=== PATIENT | male | born 1940 | race Caucasian/White ===

== ENCOUNTER 2020-06-04 10:44 | Day surgery (SDC) | payer OTHER ==
[~2020-06-04] VITALS: Ht 177.8 cm; Wt 86.5 kg
[~2020-06-04 10:44] MED LIST: ALBU90OI INH; AMLO5 PO; ATEN50 PO; AZELASTINE137 MCG/0.; Aspirin EC81 MG PO; BUPR100ER PO; BUPR75; CEPH500 PO; CLON.5 PO; DOXA4 PO; FLUT.05NI; FURO40 PO; HYDACE5 PO; LEVO750 PO; LORA.5 PO; MECL25 PO; MELO7.5 PO; OMEP20ER; OMEP20ER PO; POTA10T PO; PRODEXEL PO; Prednisone20 MG PO; TAMS.4ER PO; TRAZ100 PO; TRAZ50; VITAMIN B125000 MC1 PO; VITAMIN D310 MC4 PO; ZYRTEC10 M2 PO; Zithromax250 MG PO
--- NOTE | 2020-06-04 11:28 | NUR ---
Ambulatory in Day Surgery. Surgical site prepped with 2% Chlorhexidine cloth wipe. History, Chart, Medications and Allergies reviewed before start of procedure.Lungs clear T/O to Auscultation. Patient confirms NPO status and agrees with scheduled surgery. Pre-Op teaching done. Pt verbalizes understanding. Patient States Post-Procedure ride home has been arranged. Patient reports completing Chlorhexadine shower X2 prior to admission to hospital.
--- NOTE | 2020-06-04 11:55 | NUR ---
History, Chart, Medications and Allergies reviewed before start of procedure.Patient confirms NPO status and agrees with scheduled surgery. Patient reports completing Chlorhexadine shower X5 WITH MUCIPORION OINTMENT TO NOSE X5 prior to admission to hospital.Surgical site prepped with 2% Chlorhexidine cloth wipe.
--- NOTE | 2020-06-04 18:53 | NUR ---
SHIFT SUMMARY PT A&OX4, VSS, S/P L TKA, AQUACEL\ANITHA WRAP CDI, TEDS/SCDS/POLAR RANDA ON. DENIES N&T, WIGGLES TOES/MOVES FEET. DENIES PAIN. DENIES N&V, SERA PO. VOIDING WELL/URINAL. WILL REPORT TO ONCOMING NOC RN.
[2020-06-05 05:23] LABS: BASOPHILS ABSOLUTE AUTO 0.01 K/mm3 (0.00-0.23); BASOPHILS PERCENT AUTO 0 % (0-2); EOSINOPHILS ABSOLUTE AUTO 0.02 K/mm3 (0.00-0.68); EOSINOPHILS PERCENT AUTO 0 % (0-6); Hematocrit 37.1 % (37.0-53.0); Hemoglobin 11.6 g/dL (13.5-17.5); IMMATURE GRAN ABSOLUTE AUTO 0.05 K/mm3 (0.00-0.10); IMMATURE GRAN PERCENT AUTO 1 % (0-1); LYMPHOCYTES ABSOLUTE AUTO 0.75 K/mm3 (0.84-5.20); LYMPHOCYTES PERCENT AUTO 9 % (21-46); MONOCYTES ABSOLUTE AUTO 0.62 K/mm3 (0.16-1.47); MONOCYTES PERCENT AUTO 7 % (4-13); Mean Corpuscular HGB 28.2 pg (26.0-34.0); Mean Corpuscular HGB Conc 31.3 g/dL (31.5-36.5); Mean Corpuscular Volume 90 fL (80-100); Mean Platelet Volume 9.4 fL (9.1-12.4); NEUTROPHILS ABSOLUTE AUTO 7.36 K/mm3 (1.96-9.15); NEUTROPHILS PERCENT AUTO 84 % (41-73); Platelet Count 156 K/mm3 (150-400); RDW Coefficient Variation 14.7 % (11.7-14.2); RDW Standard Deviation 48.6 fL (35.1-46.3); Red Blood Cell Count 4.11 M/mm3 (4.30-5.90); White Blood Cell Count 8.81 K/mm3 (4.00-11.30)
[2020-06-05 05:38] LABS: Bun/Creatinine Ratio 19.1 (12.0-20.0); Creatinine, Blood 1.36 mg/dL (0.60-1.20); Potassium, Blood 4.4 mmol/L (3.5-5.5)
--- NOTE | 2020-06-05 07:26 | NUR ---
SHIFT SUMMARY POD#1. AAOX4. DISCOMFORT CONTROLLED WITH SCHEDULED TORADOL/TYLENOL + 5MG ROXICODONE Q4H. NO NAUSEA/EMESIS. DRESSING TO LEFT KNEE C/D/I. PT UP TO BATHROOM + OUT IN HALLS TO AMBULATE SBA WITH FWW + GAIT BELT X2 THIS NOC SHIFT. UP TO CHAIR THIS AM AWAITING BREAKFAST WITH CALL LIGHT IN REACH. REPORT TO DAY SHIFT RN.
[2020-06-05] MEDS ORDERED: ASPI81CH PO (10:56)
[2020-06-05] MEDS ORDERED: Percocet 5-3251 EACH PO (10:56)
--- NOTE | 2020-06-05 14:58 | NUR ---
DISCHARGE DELAY PT HAD ELEVATED PAIN AFTER AM THERAPY. PT REQUIRED A SECOND PAIN PILL. PAIN CONTINUED TO INCREASED TO 8 UNTIL 1330. HE WAS GIVEN 2 OXYCODONE AT APPROXIMATELY 1330 ALLOWED BY ORDER. PAIN IS NOW 4/10. PT ALSO NEEDED PRESCRIPTION FOR A WALKER. DR. VILLAFANA' OFFICE WAS CONTACTED REGARDING PRESCRIPTION FOR WALKER, THEY REPORTED IT HAD BEEN FAXED TO THE CT. THE OFFICE OF COMMUNITY CARE AT THE CT DENIED RECEIVING THE PRESCRIPTION. JONO AT DR. VILLAFANA' OFFICE WAS ASKED TO RE-FAX THE PRESCRIPTION. THE CT WAS ABLE TO ARRANGE FOR PT'S BEHAVIORAL ASSISTANT ANA LILIA TO BOATBUILDER SUPERVISOR HIS WALKER SINCE HE HAD PHYSICAL THERAPY AND WAS TRAINED TO USE THE WALKER PRIOR TO DISCHARGE.
--- NOTE | 2020-06-05 15:08 | NUR ---
DISCHARGE PT AND PHYSICAL SCIENCES PROFESSOR (ANA LILIA), PROVIDED WITH WRITTEN AND VERBAL DISCHARGE INSTRUCTIONS; THEY REPORTED UNDERSTANDING INSTRUCTIONS. SCRIPTS PROVIDED FOR PAIN MANAGMENT. DRESSINGS PROVIDED. VERIFIED WITH ANA LILIA THAT SHE WAS ABLE TO OBTAIN WALKER FOR THE PT. VSS. DENZEL PULLIAM ASSISTING PT OUT IN W/C AT 1513.
== END 2020-06-05 15:13 | disposition home or self-care (01) ==
LOC: ORSCMMR 10:44 → SURS 16:04 → ORSCMMR 16:15 → SURS 06-05 15:13 → ORSCMMR 06-05 15:13
PROVIDERS: Orthopaedic Surgery
PROC: 8E0Y0CZ Robotic Assisted Procedure of Lower Extremity, Open Approach (ICD-10-PCS; principal; 2020-06-04 12:45)
PROC: 0SRD0JA Replacement of Left Knee Joint with Synthetic Substitute, Uncemented, Open Approach (ICD-10-PCS; principal; 2020-06-04 12:45)
DX: M17.12 Unilateral primary osteoarthritis, left knee (principal); I10 Essential (primary) hypertension; I50.9 Heart failure, unspecified; Z79.899 Other long term (current) drug therapy
CPT/HCPCS: 27447; S2900; 36415; 73560-LT; 80048; 85025; 88300; 97110; 97116; 97162; A9270; A9270-GY; C1776; J0171; J0690; J0735; J1100; J1885; J2250; J2370; J2405; J2704; J2795; J3010; J7120

== ENCOUNTER 2020-08-16 09:16 | Day surgery (SDC) | payer OTHER, MEDICARE ==
[~2020-08-16] VITALS: Ht 162.6 cm; Wt 89.3 kg
[~2020-08-16 09:16] MED LIST changes: +ARTIFICIAL TEA1 EAC1 BOTHEYES; +ASPI81CH PO; +Flonase 0.05% N16 GM; +Percocet 5-3251 EACH PO
== END 2020-08-16 11:09 | disposition home or self-care (01) ==
LOC: ORSCSDS 09:16
PROVIDERS: Internal Medicine Gastroenterology
PROC: 0DB58ZX Excision of Esophagus, Via Natural or Artificial Opening Endoscopic, Diagnostic (ICD-10-PCS; principal; 2020-08-16 10:30)
PROC: 0DB68ZX Excision of Stomach, Via Natural or Artificial Opening Endoscopic, Diagnostic (ICD-10-PCS; principal; 2020-08-16 10:30)
DX: K92.1 Melena (principal); K22.70 Barrett's esophagus without dysplasia; Z87.11 Personal history of peptic ulcer disease; Z87.891 Personal history of nicotine dependence; K22.2 Esophageal obstruction; Z79.899 Other long term (current) drug therapy
CPT/HCPCS: 88305; 88342; J2704; J7120

== ENCOUNTER 2021-05-15 10:11 | Day surgery (SDC) | payer OTHER, MEDICARE ==
[~2021-05-15] VITALS: Ht 162.6 cm; Wt 88.0 kg
[2021-05-15] MEDS ORDERED: COMBIVENT RESPIM4 G1 INH (10:41)
--- NOTE | 2021-05-15 13:25 | NUR ---
PT TO RECOVERY ROOM WITH THREE ACCESS SITES. RRAD ACCESS WITH TR BAND IN PLACE WITH 10mL AIR IN BAND. BNO BLEEDING, OOZING OR HEMATOMA NOTED. R FEMORAL SITE WITH TEGADERM DRESSING APPLIED. WAS NOT ABLE TO ACCESS ARTERY THROUGH THE R FEM. L FEMORAL ARTERY SITE WITH SUCCESSFUL ANGIOSEAL IN PLACE. NO BLEEDING, OOZING OR HEMATOMA. PT DENIES ANY CP. PT LAYING FLAT IN BED AND PROVIDED WATER VIA STRAW. PT DENIES ANY CONCERNS AT THIS TIME. WILL CONTINUE TO MONITOR. VSS.
--- NOTE | 2021-05-15 14:31 | NUR ---
3mL AIR RELEASED FROM TR BAND. NO BLEEDING, OOZING OR HEMATOMA NOTED. BOTH FEMORAL SITES ARE STABLE WITH NO CHANGES. THERE IS NO BLEEDING, OOZING OR HEMATOMA NOTED. VSS. WILL CONTINUE TO MONITOR.
--- NOTE | 2021-05-15 14:53 | NUR ---
ALL AIR RELEASED FROM TR BAND. NO BLEEDING, OOZING OR HEMATOMA NOTED. BOTH GROIN SITES ARE STABLE WITH NO BLEEDING, OOZING OR HEMATOMA NOTED. PTS HEAD ELEVATED TO ABOUT 45 DEGREES. DENIES ANY PAIN OR DISCOMFORT OR ANY FURTHER NEEDS. WILL CONTINUE TO MONITOR. VSS.
--- NOTE | 2021-05-15 17:04 | NUR ---
DISCHARGE PT AMBULATED TO RESTROOM AND DRESSED SELF WITH NO COMPLICATIONS. TR BAND REMOVED. SITE CLEANED, CLOTH DOT DRESSING APPLIED. WHITE BOARD PLACED ON PTS R HAND. BOTH PTS GROIN SITES WITH NO BLEEDING, OOZING OR HEMATOMA NOTED. PT STATES HIS UNDERSTANDING OF SITE CARE AND DC INSTRUCTIONS AND DENIES ANY QUESTIONS OR CONCERNS. IV DC'D WITH CATH INTACT. PTS R ARM PLACED IN A SLING UPON DC. PT TAKEN TO EXIT VIA WHEELCHAIR WHERE FRIEND WAS WAITING WITH VEHICLE.
== END 2021-05-15 22:59 | disposition home or self-care (01) ==
LOC: MHTC 10:11
PROC: 4A023N7 Measurement of Cardiac Sampling and Pressure, Left Heart, Percutaneous Approach (ICD-10-PCS; principal; 2021-05-15)
PROC: B2111ZZ Fluoroscopy of Multiple Coronary Arteries using Low Osmolar Contrast (ICD-10-PCS; principal; 2021-05-15)
DX: I35.0 Nonrheumatic aortic (valve) stenosis (principal); I25.10 Atherosclerotic heart disease of native coronary artery without angina pectoris; Z88.0 Allergy status to penicillin
CPT/HCPCS: 76937; 93454; 99152; 99153; C1760; C1769; C1887; C1894; J2250; J3010; J7030; Q9967

== ENCOUNTER 2021-06-14 17:37 | Emergency (ER) | payer OTHER ==
[~2021-06-14] VITALS: Ht 172.7 cm; Wt 83.9 kg
[~2021-06-14 17:37] MED LIST changes: +COMBIVENT RESPIM4 G1 INH
[2021-06-14 18:15] LABS: BASOPHILS ABSOLUTE AUTO 0.04 K/mm3 (0.00-0.23); BASOPHILS PERCENT AUTO 1 % (0-2); EOSINOPHILS ABSOLUTE AUTO 0.21 K/mm3 (0.00-0.68); EOSINOPHILS PERCENT AUTO 4 % (0-6); Hematocrit 35.4 % (37.0-53.0); Hemoglobin 11.5 g/dL (13.5-17.5); IMMATURE GRAN ABSOLUTE AUTO 0.04 K/mm3 (0.00-0.10); IMMATURE GRAN PERCENT AUTO 1 % (0-1); LYMPHOCYTES ABSOLUTE AUTO 0.67 K/mm3 (0.84-5.20); LYMPHOCYTES PERCENT AUTO 14 % (21-46); MONOCYTES ABSOLUTE AUTO 0.42 K/mm3 (0.16-1.47); MONOCYTES PERCENT AUTO 9 % (4-13); Mean Corpuscular HGB 29.9 pg (26.0-34.0); Mean Corpuscular HGB Conc 32.5 g/dL (31.5-36.5); Mean Corpuscular Volume 92 fL (80-100); Mean Platelet Volume 9.7 fL (9.1-12.4); NEUTROPHILS ABSOLUTE AUTO 3.49 K/mm3 (1.96-9.15); NEUTROPHILS PERCENT AUTO 72 % (41-73); Platelet Count 125 K/mm3 (150-400); RDW Standard Deviation 50.3 fL (35.1-46.3); Red Blood Cell Count 3.85 M/mm3 (4.30-5.90); White Blood Cell Count 4.87 K/mm3 (4.00-11.30)
[2021-06-14 18:33] LABS: Alanine Aminotransfer (ALT/SGP 13 U/L (12-78); Albumin, Blood 2.5 g/dL (3.4-5.0); Alk Phos 83 U/L (50-136); Anion Gap 5 mmol/L (6-16); Aspartate Aminotrans (AST/SGOT 16 U/L (12-37); Bilirubin, Total 0.7 mg/dL (0.1-1.0); Blood Urea Nitrogen 19 mg/dL (8-24); Bun/Creatinine Ratio 17.8 (12.0-20.0); CO2, Blood 23 mmol/L (21-32); Calcium, Blood 6.7 mg/dL (8.5-10.1); Chloride, Blood 118 mmol/L (98-108); Creatinine, Blood 1.07 mg/dL (0.60-1.20); Globulin, Blood 2.5 g/dL (2.2-4.0); Glomerular Filtration Rate >60 (60-); Glucose, Blood 80 mg/dL (70-99); Potassium, Blood 3.2 mmol/L (3.5-5.5); Sodium, Blood 146 mmol/L (136-145); Troponin I <0.015 ng/mL (0.000-0.040)
== END 2021-06-14 20:57 | disposition home or self-care (01) ==
LOC: ER 17:37
PROVIDERS: Emergency Medicine
DX: R07.9 Chest pain, unspecified (principal); R00.2 Palpitations; Z88.0 Allergy status to penicillin; Z79.899 Other long term (current) drug therapy; I10 Essential (primary) hypertension; Z87.891 Personal history of nicotine dependence
CPT/HCPCS: 71045; 80053; 84484; 85025; 93005; 93010; 99285-25

== ENCOUNTER 2021-09-05 15:20 | Inpatient (IN) | payer OTHER ==
[~2021-09-05] VITALS: Ht 167.6 cm; Wt 79.4 kg
[2021-09-05 20:21] LABS: BASOPHILS ABSOLUTE AUTO 0.03 K/mm3 (0.00-0.23); BASOPHILS PERCENT AUTO 0 % (0-2); EOSINOPHILS ABSOLUTE AUTO 0.08 K/mm3 (0.00-0.68); EOSINOPHILS PERCENT AUTO 1 % (0-6); Hematocrit 30.4 % (37.0-53.0); Hemoglobin 9.9 g/dL (13.5-17.5); IMMATURE GRAN ABSOLUTE AUTO 0.25 K/mm3 (0.00-0.10); IMMATURE GRAN PERCENT AUTO 4 % (0-1); LYMPHOCYTES ABSOLUTE AUTO 0.72 K/mm3 (0.84-5.20); LYMPHOCYTES PERCENT AUTO 10 % (21-46); MONOCYTES ABSOLUTE AUTO 0.79 K/mm3 (0.16-1.47); MONOCYTES PERCENT AUTO 11 % (4-13); Mean Corpuscular HGB 28.6 pg (26.0-34.0); Mean Corpuscular HGB Conc 32.6 g/dL (31.5-36.5); Mean Corpuscular Volume 88 fL (80-100); Mean Platelet Volume 9.1 fL (9.1-12.4); NEUTROPHILS ABSOLUTE AUTO 5.31 K/mm3 (1.96-9.15); NEUTROPHILS PERCENT AUTO 74 % (41-73); Platelet Count 236 K/mm3 (150-400); RDW Coefficient Variation 15.1 % (11.7-14.2); RDW Standard Deviation 48.2 fL (35.1-46.3); Red Blood Cell Count 3.46 M/mm3 (4.30-5.90); White Blood Cell Count 7.18 K/mm3 (4.00-11.30)
[2021-09-05 20:33] LABS: Bun/Creatinine Ratio 15.7 (12.0-20.0); Calcium, Blood 8.3 mg/dL (8.5-10.1); Creatinine, Blood 1.53 mg/dL (0.60-1.20); Potassium, Blood 3.6 mmol/L (3.5-5.5)
[2021-09-06 01:40] LABS: Source, Urine Clean Catch
[2021-09-06 01:43] LABS: Bilirubin, Urine Neg (Neg); Blood, Urine Neg (Neg); Glucose Qualitative, Urine Neg (Neg); Ketones, Urine Neg (Neg); Leukocyte Esterase, Urine Neg (Neg); Nitrite, Urine Neg (Neg); Protein, Urine Neg (Neg); Urobilinogen, Urine 2+ (Normal)
[2021-09-06 01:44] LABS: Appearance, Urine Clear (Clear); Color, Urine Yellow (P-Yellow)
--- NOTE | 2021-09-06 04:31 | NUR ---
SHIFT SUMMARY RECIEVED REPORT FROM SAUL TILLEY. ARRIVED VIA GURNEY TO MEDICAL FLOOR @ 0039; TRANSFER ASSISTANCE REQUIRED. ORIENTED TO ROOM AND CALL SYSTEM. A/O, ABLE TO MAKE NEEDS KNOWN. VERY [place] /c BILATERAL HEARING AIDS PRESENT. PAINFUL /c ANY MOVEMENT. CONTINENT /c ATTENDS. CALLS AND ANSWERS QUESTIONS APPROPIRATELY. NS @ 75 ML/HR. VSS/AFEBRILE. NO OTHER ACUTE CHANGES NOTED. BED WHEELS LOCKED AND IN PLACE. CALL LIGHT AND BELONGINGS WITHIN REACH. REPORT TO ONCOMING SAUL.
[2021-09-06 04:47] LABS: BASOPHILS ABSOLUTE AUTO 0.03 K/mm3 (0.00-0.23); BASOPHILS PERCENT AUTO 0 % (0-2); EOSINOPHILS ABSOLUTE AUTO 0.11 K/mm3 (0.00-0.68); EOSINOPHILS PERCENT AUTO 2 % (0-6); Hematocrit 31.1 % (37.0-53.0); Hemoglobin 9.8 g/dL (13.5-17.5); IMMATURE GRAN ABSOLUTE AUTO 0.19 K/mm3 (0.00-0.10); IMMATURE GRAN PERCENT AUTO 3 % (0-1); LYMPHOCYTES ABSOLUTE AUTO 0.66 K/mm3 (0.84-5.20); LYMPHOCYTES PERCENT AUTO 9 % (21-46); MONOCYTES ABSOLUTE AUTO 0.66 K/mm3 (0.16-1.47); MONOCYTES PERCENT AUTO 9 % (4-13); Mean Corpuscular HGB 27.8 pg (26.0-34.0); Mean Corpuscular HGB Conc 31.5 g/dL (31.5-36.5); Mean Corpuscular Volume 88 fL (80-100); Mean Platelet Volume 9.4 fL (9.1-12.4); NEUTROPHILS ABSOLUTE AUTO 5.88 K/mm3 (1.96-9.15); NEUTROPHILS PERCENT AUTO 78 % (41-73); Platelet Count 227 K/mm3 (150-400); RDW Coefficient Variation 15.3 % (11.7-14.2); RDW Standard Deviation 49.2 fL (35.1-46.3); Red Blood Cell Count 3.53 M/mm3 (4.30-5.90); White Blood Cell Count 7.53 K/mm3 (4.00-11.30)
[2021-09-06 05:21] LABS: Albumin, Blood 2.7 g/dL (3.4-5.0); Bun/Creatinine Ratio 18.4 (12.0-20.0); Calcium, Blood 8.1 mg/dL (8.5-10.1); Creatinine, Blood 1.36 mg/dL (0.60-1.20); Globulin, Blood 2.8 g/dL (2.2-4.0); Potassium, Blood 3.7 mmol/L (3.5-5.5); Total Protein, Blood 5.5 g/dL (6.4-8.2)
--- NOTE | 2021-09-06 18:22 | NUR ---
SHIFT SUMMARY PT AWAKE AT START OF SHIFT, LYING FLAT, BUT WITH PILLOWS TO R BACK FOR SUPPORT. PT MEDICATED FOR C/O PAIN EARLY AND AGAIN LATER MORNING. PT C/O C/P, BUT REPORTED THAT IT HAS BEEN GOING ON FOR 2 1/2 YEARS. PT REPORTED THAT HE WAS TO HAVE A PROCEDURE IN [place] THIS WEDNESDAY, BUT EQUIPMENT BROKE DOWN. ECHO DONE IN SOON AFTER. NO FURTHER C/O. DR AGUIRRE IN TO SEE PT A COUPLE OF TIMES TODAY. PAIN MEDICATION ADJUSTED AND BCX'S ORDERED. DIET CHANGED PER PT REQUEST HE STATED HE COULDN'T CHEW REG DIET. IVF'S X1 BAG COMPLETE. PT IS SL. CALL LT IN REACH.
--- NOTE | 2021-09-06 18:37 | NUR ---
[facility] CALLED TO CHECK STATUS OF PT FOR BACK BRACE PLACEMENT. PT MUST BE ABLE TO SIT UPRIGHT FOR PLACEMENT. BRACE IS NOT FOR LYING IN BED, BUT FOR WHEN PT IS AMBULATORY. PT CURRENTLY IS NOT ABLE TO SIT UPRIGHT OR GET OOB. [facility] TO BE NOTIFIED WHEN WE WANT THEM TO COME AND PLACE BACK BRACE FOR D/C. NOTIFY [facility] ANS @ [phone].
--- NOTE | 2021-09-07 05:01 | NUR ---
SHIFT SUMMARY A/O, ABLE TO MAKE NEEDS KNOWN. COOPERATIVE WITH CARE. CALLS AND ANSWERS QUESTIONS APPROPRIATELY. VERY [place]; COMMUNICATION MOSTLY EASY. C/O PAIN/DISCOMFORT TO NECK; MEDICATED PER EMAR. APPEARED TO REST MUCH OF THE NIGHT. NO ACUTE CHANGES NOTED. BED REMAINS IN LOWEST POSTION. CALL LIGHT AND BELONGINGS WITHIN REACH. REPORT TO ONCOMING RN.
--- NOTE | 2021-09-07 17:03 | NUR ---
SHIFT SUMMARY PT IS A&O AND APPEARS TO HAVE LESS BACK PAIN TODAY. PT IS MUCH MORE MOBILE TODAY THAN YESTERDAY, THOUGH STILL NOT COMPLETELY UPRIGHT. PT WAS TO HAVE A CT GUIDED BIOPSY TODAY, BUT RADIOLOGY CALLED TO REPORT THAT NO ONE WAS AVAILABLE ON WEDNESDAY; TO BE RESCHEDULED FOR TOMORROW. LAB CALLED TO REPORT +BCX'S; DR AGUIRRE NOTIFIED AND NEW ORDERS PLACED. IV ABX STARTED. PT TO HAVE PICC PLACED TOMORROW FOR 6 WEEKS OUTPT ABX AT D/C. PT HAS BEEN MEDICATED PER EMAR WITH FLEXERIL AND PAIN MEDICATION. FLEXERIL APPEARS TO BE HELPING PT TO BE MORE MOBILE IN BED. PT REMAINS VERY NEEDY, PRESSING CALL LT EVERY COUPLE OF MINS. PT HAS ALSO BEEN VERY IRRITABLE THE PAST COUPLE OF DAYS AT LEAST. PT IN NO ACUTE DISTRESS, ABLE TO MAKE NEEDS KNOWN.
[2021-09-08 04:37] LABS: Hematocrit 30.9 % (37.0-53.0); Mean Corpuscular HGB Conc 32.4 g/dL (31.5-36.5); Mean Corpuscular Volume 87 fL (80-100); Mean Platelet Volume 9.6 fL (9.1-12.4); Platelet Count 216 K/mm3 (150-400); RDW Coefficient Variation 14.6 % (11.7-14.2); RDW Standard Deviation 46.4 fL (35.1-46.3); Red Blood Cell Count 3.57 M/mm3 (4.30-5.90); White Blood Cell Count 7.51 K/mm3 (4.00-11.30)
[2021-09-08 04:55] LABS: Alanine Aminotransfer (ALT/SGP 16 U/L (12-78); Albumin, Blood 2.5 g/dL (3.4-5.0); Albumin/Globulin Ratio 0.7 (0.8-1.8); Alk Phos 84 U/L (50-136); Anion Gap 7 mmol/L (6-16); Aspartate Aminotrans (AST/SGOT 16 U/L (12-37); Bilirubin, Total 1.4 mg/dL (0.1-1.0); Blood Urea Nitrogen 20 mg/dL (8-24); Bun/Creatinine Ratio 17.2 (12.0-20.0); CO2, Blood 24 mmol/L (21-32); Calcium, Blood 8.4 mg/dL (8.5-10.1); Chloride, Blood 108 mmol/L (98-108); Creatinine, Blood 1.16 mg/dL (0.60-1.20); Globulin, Blood 3.7 g/dL (2.2-4.0); Glomerular Filtration Rate >60 (60-); Glucose, Blood 122 mg/dL (70-99); Potassium, Blood 3.5 mmol/L (3.5-5.5); Sodium, Blood 139 mmol/L (136-145); Total Protein, Blood 6.2 g/dL (6.4-8.2)
--- NOTE | 2021-09-08 05:42 | NUR ---
SHIFT SUMMARY ALERT AND ORIENTED ABLE TO MAKE NEEDS KNOWN PT SLEEPT FOR FEW HOURS INCREASED CONFUSION NOTED PT PRESSING CALL BUTTON EVERY 2MIN FOR DIFFERENT RANDOM STUFF ALSO STATING HE COME ALL THE WAY FROM [place] PT REDIRECTED THAT HE IS IN [place] ALSO STATING HE DINT EAT THE WHOLE DAY HE DINT GET HIS MEDICATION .SNACKS GIVEN PAIN MEDICATION ADM X2 C/O BACK PAIN WITH RELIEF.ASSISTED WITH CARE CALL LIGHT WITHIN REACH.
[2021-09-08 09:28] LABS: International Normalized Ratio 1.22; Prothrombin Time Results 12.6 Sec (9.7-11.5)
[2021-09-08] MEDS ORDERED: ACET500 PO (10:27)
[2021-09-08] MEDS ORDERED: Alphagan P5 ML BOTHEYES (10:29)
[2021-09-08] MEDS ORDERED: CYCL10 PO (10:54)
[2021-09-08] MEDS ORDERED: FURO40 PO (10:56)
[2021-09-08] MEDS ORDERED: VOLTAREN ARTHRI20 GM TOP (10:56)
[2021-09-08] MEDS ORDERED: GENTEAL TEARS S10 GM BOTHEYES (10:57)
[2021-09-08] MEDS ORDERED: IBUP400 PO (10:58)
[2021-09-08] MEDS ORDERED: KETO.5OPSO LEFTEYE (11:04)
[2021-09-08] MEDS ORDERED: LATANOPROST 0.7.5 M3 BOTHEYES (11:05)
[2021-09-08] MEDS ORDERED: LIDO700A20 TOP (11:06)
[2021-09-08] MEDS ORDERED: METSALMENC TOP (11:07)
[2021-09-08] MEDS ORDERED: PRED20 PO (11:08)
--- NOTE | 2021-09-08 17:58 | NUR ---
PATIENT IS CONFUSED. HE BECAME AGITATED WITH CARE THIS AFTERNOON, MEDICATED PER EMAR. CT OF THE HEAD COMPLETE. USES THE URINAL WITH ASSISTANCE. ON RA. MEPILEX ON BOTTOM, STAGE 1 PRESSURE ULCER. UPDATE CALLED TO PATIENT'S SON THIS AFTERNOON. BACK BRACE FITTED FOR PATIENT THIS AFTERNOON, IN THE ROOM. PATIENT IS TO WEAR THE BACK BRACE WHEN AMBULATING BUT NOT WHILE IN BED. BACK PAIN MEDICATED PER EMAR. WILL CONTINUE TO MONITOR
--- NOTE | 2021-09-09 04:41 | NUR ---
SHIFT SUMMARY PATIENT COOPERATIVE WITH CARE IN THIS SHIFT.ALERT WITH CONFUSION FOUND IN THE BATHROOM UNASSISTED USUALLY PT CALLS FOR ASSISTANCE.ASSISTED BACK TO BED PAIN MEDICATION ADM PER REQUEST.DAUGHTER JUAN PABLO CALL FOR UPDATES.
[2021-09-09 04:48] LABS: Hematocrit 32.2 % (37.0-53.0); Hemoglobin 10.4 g/dL (13.5-17.5); Mean Corpuscular HGB 28.1 pg (26.0-34.0); Mean Corpuscular HGB Conc 32.3 g/dL (31.5-36.5); Mean Corpuscular Volume 87 fL (80-100); Mean Platelet Volume 9.6 fL (9.1-12.4); Platelet Count 224 K/mm3 (150-400); RDW Coefficient Variation 14.7 % (11.7-14.2); RDW Standard Deviation 46.8 fL (35.1-46.3); White Blood Cell Count 8.89 K/mm3 (4.00-11.30)
[2021-09-09 05:58] LABS: Albumin, Blood 2.6 g/dL (3.4-5.0); Albumin/Globulin Ratio 0.7 (0.8-1.8); Bilirubin, Total 1.5 mg/dL (0.1-1.0); Bun/Creatinine Ratio 17.2 (12.0-20.0); Calcium, Blood 8.5 mg/dL (8.5-10.1); Creatinine, Blood 1.28 mg/dL (0.60-1.20); Globulin, Blood 3.7 g/dL (2.2-4.0); Potassium, Blood 3.6 mmol/L (3.5-5.5); Thyroid Stimulating Hormone 2.69 uIU/mL (0.360-4.800); Total Protein, Blood 6.3 g/dL (6.4-8.2)
[2021-09-09 12:42] LABS: Vancomycin, Trough 8.6 ug/mL (5.0-10.0)
--- NOTE | 2021-09-09 16:48 | NUR ---
PATIENT A/OX3 TODAY. VERY PAINFUL IN LOWER BACK AND HIPS MAKING IT DIFFICULT TO MOVE OR REPOSITION. STARTED ON FENTANYL PATCH TODAY AND ASPERCREAM TO HIPS WITH SOME RELIEF. TYLENOL AND OXYCODONE GIVEN FOR BREAKTHROUGH PAIN. VSS, ON RA. DRESSING TO WOUND ON COCCYX REMAINS C/D/I. CONTINENT/INCONTINENT OF URINE/STOOL. CAN USE URINAL WITH ASSIST. FALL PRECAUTIONS IN PLACE, DOES NOT USE CALL LIGHT FOR ASSISTANCE. PT/OT ORDERED, BUT PATIENT TOO PAINFUL TO WORK WITH THEM TODAY.
[2021-09-10 04:44] LABS: BASOPHILS ABSOLUTE AUTO 0.02 K/mm3 (0.00-0.23); BASOPHILS PERCENT AUTO 0 % (0-2); EOSINOPHILS PERCENT AUTO 2 % (0-6); Hematocrit 29.1 % (37.0-53.0); Hemoglobin 9.2 g/dL (13.5-17.5); IMMATURE GRAN ABSOLUTE AUTO 0.08 K/mm3 (0.00-0.10); IMMATURE GRAN PERCENT AUTO 1 % (0-1); LYMPHOCYTES ABSOLUTE AUTO 0.61 K/mm3 (0.84-5.20); LYMPHOCYTES PERCENT AUTO 10 % (21-46); MONOCYTES ABSOLUTE AUTO 0.57 K/mm3 (0.16-1.47); MONOCYTES PERCENT AUTO 10 % (4-13); Mean Corpuscular HGB Conc 31.6 g/dL (31.5-36.5); Mean Corpuscular Volume 88 fL (80-100); Mean Platelet Volume 9.7 fL (9.1-12.4); NEUTROPHILS ABSOLUTE AUTO 4.61 K/mm3 (1.96-9.15); NEUTROPHILS PERCENT AUTO 77 % (41-73); Platelet Count 217 K/mm3 (150-400); RDW Coefficient Variation 14.6 % (11.7-14.2); RDW Standard Deviation 47.7 fL (35.1-46.3); Red Blood Cell Count 3.29 M/mm3 (4.30-5.90); White Blood Cell Count 5.99 K/mm3 (4.00-11.30)
--- NOTE | 2021-09-10 04:44 | NUR ---
SHIFT SUMMARY PATIENT PLEASANT ABLE TO VOICE NEEDS C/O PAIN TO HIS BACK X1 FENTALY IV ADM WITH RELIEF LESS CONFUSSED IN THIS SHIFT CALM AND MAKING SENSE ON CONVERSATION WITH STAFF AND FAMILY ON THE PHONE.ASSITED WITH URINAL SEVERAL TIMES.PO FLUIDS OFFERED AND ENCOURAGED.PT SLEPT MOST OF THE NIGHT .
[2021-09-10 09:27] LABS: Percent Saturation 17.1 % (20.0-50.0)
--- NOTE | 2021-09-10 17:10 | NUR ---
ANA LILIA, PATIENTS CAREGIVER CAME IN TO SEE PATIENT THIS EVENING. PATIENTS WALLET AND KEYS WERE SENT HOME WITH ANA LILIA AT PATIENTS REQUEST.
--- NOTE | 2021-09-10 17:19 | NUR ---
PATIENT HAD A BETTER DAY TODAY. PAIN MUCH BETTER MANAGED WITH FENTANYL PATCH AND MEDS PER EMAR FOR BREAKTHROUGH PAIN. VANCOMYCIN TO TREAT INFECTION. VSS, ON RA. USING URINAL WITH ASSISTANCE. 18G IV TO LFA WNL AND SL. A/O X3 WITH OCCAIONAL FORGETFULNESS. WORKED WITH OT TODAY. CONTINUES TO HAVE A POOR APPETITE, ENCOURAGING PO INTAKE. MEPILEX DRESSING TO COCCYX WOUND REMAINS C/D/I. COOPERATIVE WITH CARE, CALLS APPROPRIATELY FOR ASSISTANCE.
[2021-09-11 04:53] LABS: BASOPHILS ABSOLUTE AUTO 0.03 K/mm3 (0.00-0.23); BASOPHILS PERCENT AUTO 1 % (0-2); EOSINOPHILS ABSOLUTE AUTO 0.16 K/mm3 (0.00-0.68); EOSINOPHILS PERCENT AUTO 3 % (0-6); Hemoglobin 8.6 g/dL (13.5-17.5); IMMATURE GRAN ABSOLUTE AUTO 0.09 K/mm3 (0.00-0.10); IMMATURE GRAN PERCENT AUTO 2 % (0-1); LYMPHOCYTES ABSOLUTE AUTO 0.61 K/mm3 (0.84-5.20); LYMPHOCYTES PERCENT AUTO 11 % (21-46); MONOCYTES PERCENT AUTO 7 % (4-13); Mean Corpuscular HGB 27.3 pg (26.0-34.0); Mean Corpuscular HGB Conc 30.7 g/dL (31.5-36.5); Mean Corpuscular Volume 89 fL (80-100); Mean Platelet Volume 9.9 fL (9.1-12.4); NEUTROPHILS ABSOLUTE AUTO 4.08 K/mm3 (1.96-9.15); NEUTROPHILS PERCENT AUTO 76 % (41-73); Platelet Count 213 K/mm3 (150-400); RDW Coefficient Variation 14.6 % (11.7-14.2); Red Blood Cell Count 3.15 M/mm3 (4.30-5.90); White Blood Cell Count 5.37 K/mm3 (4.00-11.30)
--- NOTE | 2021-09-11 05:13 | NUR ---
SHIFT SUMMARY PATIENT CALM PLEASANT IN THIS SHIFT ABLE TO VOICE NEEDS C/O PAIN TO HIS BACK X1 PRN MEDS ADM WITH RELIEF DRESSING TO OPEN AREA TO HIS WOUND CHANGED.
[2021-09-11 05:25] LABS: Bun/Creatinine Ratio 21.2 (12.0-20.0); Creatinine, Blood 1.18 mg/dL (0.60-1.20); Potassium, Blood 3.9 mmol/L (3.5-5.5)
[2021-09-11 13:35] LABS: Creatinine, Blood 1.22 mg/dL (0.60-1.20); Vancomycin, Trough 14.2 ug/mL (5.0-10.0)
--- NOTE | 2021-09-11 18:56 | NUR ---
SHIFT SUMMARY PATIENT LAYING IN BED RESTING. PATIENT A&O X3 OCCASIONALLY FORGETFUL. C/O HIP AND BACK PAIN. MEDICATED PER SEP. PATIENT REQUESTED CREAM MULTIPLE TIMES T/O SHIFT TO BE RUBBED ON BILATERAL HIPS. PATIENT UP TO CHAIR WITH BACK BRACE ON. PATIENT WORKED WITH PT/OT. RECEIVING IV VANCO. VSS. BED IN LOW POSITION WITH BED ALARM ON. WILL CONTINUE TO MONITOR.
--- NOTE | 2021-09-12 04:55 | NUR ---
SHIFT SUMMARY PATIENT PLEASANT SLEPT MOST OF THE TIME C/O PAIN TO HIS BACK X 1 PRN ADM WITH RELIEF,ASSISTED WITH URINAL DURING ROUNDS NO S/S OF DISTRESS NO SOB NOTED.
--- NOTE | 2021-09-12 18:42 | NUR ---
SHIFT SUMMARY PATIENT RESTING IN BED. PATIENT IS FORGETFUL AND BECOMES EASILY AGITATED. PATIENT C/O BACK/HIP PAIN. POOR APPETITE. MEDICATED PER SEP MULTIPLE TIMES T/O SHIFT. PATIENT FENTANYL PATCH CHANGED TODAY. PICC LINE PLACED AND PLACEMENT CONFIRMED. WORKED WITH OT BUT REFUSED TO WORK WITH PT TODAY. VSS. WILL CONTINUE TO MONITOR.
--- NOTE | 2021-09-13 09:04 | NUR ---
PT WAS C/O SIGNIFICANT PAIN ON ROUNDING THIS AM. WHEN ASKED WHERE IT WAS PT REPORTED HIS BLADDER. PER GRAPHIC DESIGN INTERN THEY HAD EMPTIED URINAL MULTIPLE TIMES. BLADDER SCANNED PATIENT FOR GREATER THAN 500. STRAIGHT CATH PLACED PER PROTOCOL. 1000ML OUT. PT STATES RELIEF FROM PAIN AFTER CATH PERFORMED. CURRENTLY RESTING IN BED. EATING BREAKFAST.
--- NOTE | 2021-09-13 13:14 | NUR ---
PT REMAINED UNABLE TO VOID AFTER MULTIPLE ATTEMPTS BLADDER SCANNED OF 433. INSERTED MOORE PER. DR. SALGADO. PT TOLERATED PROCEDURE WELL. CURRENTLY SLEEPING IN BED AND REPORTS BLADDER PAIN IMPROVD.
[2021-09-13 13:26] LABS: Source, Urine Foley catheter
[2021-09-13 13:27] LABS: Vancomycin, Trough 15.4 ug/mL (5.0-10.0)
[2021-09-13 13:30] LABS: Appearance, Urine Hazy (Clear); Bilirubin, Urine Neg (Neg); Blood, Urine 4+ (Neg); Color, Urine Amber (P-Yellow); Glucose Qualitative, Urine Neg (Neg); Ketones, Urine Neg (Neg); Leukocyte Esterase, Urine 2+ (Neg); Nitrite, Urine Neg (Neg); Protein, Urine 1+ (Neg); Urobilinogen, Urine 2+ (Normal)
[2021-09-13 14:12] LABS: White Blood Cells, Urine 25-50 /hpf (0-5)
[2021-09-13 14:14] LABS: Bacteria Many /hpf; Squamous Epithelial Cells Not Seen /hpf (Few)
[2021-09-13 14:15] LABS: Hyaline Casts 0-2 /lpf (0-2)
--- NOTE | 2021-09-13 16:49 | NUR ---
SHIFT SUMMARY PT REMAINS AA0X2/3. HE IS CONFUSED AND FORGETFUL AT TIMES. HE WILL ASK THIS RN TO REPEAT QUESTIONS FREQUENTLY. HE HAS BEEN TRYING TO GET OUT OF BED REGULARILY AND FORGETS HIS BACK INJURY. BED ALARM REMAINS ON. PT WILL OFTEN CALL OUT WITHOUT USING CALL LIGHT. MOORE PLACED PER ORDERS, REMAINS PATENT AND DRAINING. PT USING PHONE TO CALL FAMILY AND FRIENDS DURING THE SHIFT.
--- NOTE | 2021-09-13 18:37 | NUR ---
PT MOVED TO ROOM 350. WILL GIVE REPORT TO ONCOMING NURSE. ALL BELONGINGS SENT WITH PATIENT.
[2021-09-14 06:15] LABS: BASOPHILS ABSOLUTE AUTO 0.05 K/mm3 (0.00-0.23); BASOPHILS PERCENT AUTO 1 % (0-2); EOSINOPHILS ABSOLUTE AUTO 0.09 K/mm3 (0.00-0.68); EOSINOPHILS PERCENT AUTO 1 % (0-6); Hematocrit 30.8 % (37.0-53.0); Hemoglobin 9.9 g/dL (13.5-17.5); IMMATURE GRAN ABSOLUTE AUTO 0.17 K/mm3 (0.00-0.10); IMMATURE GRAN PERCENT AUTO 2 % (0-1); LYMPHOCYTES ABSOLUTE AUTO 0.54 K/mm3 (0.84-5.20); LYMPHOCYTES PERCENT AUTO 5 % (21-46); MONOCYTES ABSOLUTE AUTO 0.77 K/mm3 (0.16-1.47); MONOCYTES PERCENT AUTO 8 % (4-13); Mean Corpuscular HGB Conc 32.1 g/dL (31.5-36.5); Mean Corpuscular Volume 87 fL (80-100); Mean Platelet Volume 10.1 fL (9.1-12.4); NEUTROPHILS ABSOLUTE AUTO 8.61 K/mm3 (1.96-9.15); NEUTROPHILS PERCENT AUTO 84 % (41-73); Platelet Count 299 K/mm3 (150-400); RDW Coefficient Variation 15.2 % (11.7-14.2); RDW Standard Deviation 47.8 fL (35.1-46.3); Red Blood Cell Count 3.53 M/mm3 (4.30-5.90); White Blood Cell Count 10.23 K/mm3 (4.00-11.30)
[2021-09-14 06:26] LABS: Alanine Aminotransfer (ALT/SGP 34 U/L (12-78); Albumin, Blood 2.4 g/dL (3.4-5.0); Albumin/Globulin Ratio 0.6 (0.8-1.8); Alk Phos 96 U/L (50-136); Anion Gap 8 mmol/L (6-16); Aspartate Aminotrans (AST/SGOT 33 U/L (12-37); Bilirubin, Total 1.9 mg/dL (0.1-1.0); Blood Urea Nitrogen 16 mg/dL (8-24); Bun/Creatinine Ratio 18.3 (12.0-20.0); CO2, Blood 23 mmol/L (21-32); Calcium, Blood 8.2 mg/dL (8.5-10.1); Chloride, Blood 105 mmol/L (98-108); Creatinine, Blood 0.87 mg/dL (0.60-1.20); Globulin, Blood 3.9 g/dL (2.2-4.0); Glomerular Filtration Rate >60 (60-); Glucose, Blood 123 mg/dL (70-99); Potassium, Blood 3.8 mmol/L (3.5-5.5); Sodium, Blood 136 mmol/L (136-145); Total Protein, Blood 6.3 g/dL (6.4-8.2)
--- NOTE | 2021-09-14 07:05 | NUR ---
SHIFT SUMMARY: PATIENT IS CONSTIPATED, AWAITING RESULT FROM SUPPOSITORY GIVEN ON DAY SHIFT. PRUNE JUICE AND SENNA WERE GIVEN AT HS WITH [employer] OF MULTIPLE LIQUID STOOLS. ASSISTED TO THE BSC WITH NO RESULT OF A FORMED BM. THEN THIS AM PATIENT WAS ABLE TO HAVE TWO SMALL BROWN FORMED BM'S. PATIENT IS TEARFUL AT TIMES AND STATES "I FEEL LIKE THEY HAVE ALL JUST LEFT ME HERE". PATIENT CALLED FAMILY MEMBERS AND LEFT MESSAGES IN THE EARLY HOURS OF THE MORNING.
--- NOTE | 2021-09-14 13:15 | NUR ---
Patient was alert and orient. He spent time in the bed and agreed to sit in the chair for awhile. He was compliant with taking his medications and did complain of pain. He recvd prn Oxycodone and Aspercreme topically. Patient spent time on his phone and he had no further requests.
--- NOTE | 2021-09-15 06:48 | NUR ---
SHIFT SUMMARY: PATIENT IS A&OX4, FORGETFUL AT TIMES WITH STML. REPORTING LOW BACK PAIN RADIATING TO THE ABD. ALSO REPORTS BURNING AT URINARY MEATUS. MOORE IS DRAINING AN AMARIS URINE. 1000ML PLUS OUT THIS SHIFT. FENTANYL PATCH IN ON RIGHT ARM AND PRN TYLENOL AND OXYCODONE ARE GIVEN WITH [employer] OF PASTY STOOL NUMEROUS TIMES THIS SHIFT.
--- NOTE | 2021-09-15 13:16 | NUR ---
Patient was alert and orient. He was in pain throughout this morning. He recvd PRN Oxycodone at 0600, Fentanyl at 0800, and Aspercreme topical on his back. Patient worked with PT this morning. He sat in the chair for 20 minutes and then wanted to lie back in bed becuz of the pain. Patient appetite was less than 50%. He was compliant with taking medications.
[2021-09-15] MEDS ORDERED: FAMO20 PO (15:49)
[2021-09-15] MEDS ORDERED: ASPI81CH PO (15:49)
[2021-09-15] MEDS ORDERED: MELA3 PO (15:50)
[2021-09-15] MEDS ORDERED: FENTANYL TOP (15:50)
[2021-09-15] MEDS ORDERED: RIFA300 PO (15:51)
[2021-09-15] MEDS ORDERED: SENN187 PO (15:51)
[2021-09-15] MEDS ORDERED: OXYC10TA19 PO (15:51)
[2021-09-15] MEDS ORDERED: ALCIS59.15 ML TOP (15:52)
[2021-09-15] MEDS ORDERED: VANCOMYCIN HCL750 M1 (15:54)
[2021-09-15] MEDS ORDERED: LACT PO (15:55)
--- NOTE | 2021-09-16 05:35 | NUR ---
SHIFT SUMMARY AOX2-SELF, MONTH & FOLLOWING DIRECTIONS. PT FORGETF[place]. CONFUSED @TIMES. VSS. REPORTS 5-04/11 PAIN MEDICATED 1X c 50MCG FENTANYL. RESTED WELL T/O NIGHT. MOORE PATENT & DRAINING ORANGE URINE. CALL LIGHT & BED ALARM IN PLACE. AWAITING SAFE DC PLAN. WCTM.
--- NOTE | 2021-09-16 11:18 | NUR ---
RECEIVED MESSAGE THAT PT'S SON JON WANTED TELEPHONE UPDATE ON PT'S CONDITION. PATIENT GAVE VERBAL OK FOR NURSING TO SPEAK TO HIS SON. CALLED JON [phone], WENT STRAIGHT TO , LEFT MESSAGE FOR HIM TO CALL BACK.
--- NOTE | 2021-09-16 11:32 | NUR ---
PT'S SON CALLED BACK, GAVE HIM UPDATE. HE IS ON HIS WAY HERE FROM [facility]. JON ASKED THAT DR. WU CALL HIM. CALLED PROVIDER, RELAYED MESSAGE AND GAVE HIM PT'S SON'S PHONE NUMBER.
--- NOTE | 2021-09-16 18:05 | NUR ---
SHIFT SUMMARY: C/O 7-04/11 PAIN IN BACK WITH ACCOMPANYING MUSCLE SPASMS; MEDICATED PER EMAR WITH WHAT HE STATES IS ADEQUATE RELIEF. GOT OOB WITH PHYSICAL THERAPY, AMBULATED TO DOORWAY AND BACK TO CHAIR, SAT UP FOR ABOUT AN HOUR. TOLERATING PO INTAKE BUT CONSTANTLY COMPLAINS ABOUT THE FOOD. MOORE CATHETER D/C'D THIS EVENING; EDUCATED ABOUT THE NEED TO VOID ON HIS OWN WITHIN 6 HOURS AND HE VERBALIZED UNDERSTANDING. PLAN IS TRANSFER TO [facility] TOMORROW.
[2021-09-16 21:46] LABS: Influenza A, PCR NEGATIVE (NEGATIVE); Influenza B, PCR NEGATIVE (NEGATIVE); Resp Syncytial Virus, PCR NEGATIVE (NEGATIVE); SARS-Cov-2 (COVID-19) PCR, MMC NEGATIVE (NEGATIVE)
--- NOTE | 2021-09-17 13:13 | NUR ---
[facility] VSS. BLADDER EMPTIED VIA STRAIGHT CATH PER DR. IVAN. PICC LINE TO CESAR. PACKET SENT W/ TRANSPORTER. PT BELONGINGS IN TOW.
== END 2021-09-17 13:14 | DRG 853 ==
LOC: ER 15:20 → MEDS 22:58 → ENPENDDIS 09-15 12:08 → MEDS 09-17 13:14
PROVIDERS: Emergency Medicine; Internal Medicine; ADMIT Internal Medicine
PROC: 0QB03ZX Excision of Lumbar Vertebra, Percutaneous Approach, Diagnostic (ICD-10-PCS; principal; 2021-09-08)
PROC: 02H633Z Insertion of Infusion Device into Right Atrium, Percutaneous Approach (ICD-10-PCS; 2021-09-12)
DX: A41.01 Sepsis due to Methicillin susceptible Staphylococcus aureus (principal); G92.8 Other toxic encephalopathy; I63.89 Other cerebral infarction; M48.56XA Collapsed vertebra, not elsewhere classified, lumbar region, initial encounter for fracture; N17.9 Acute kidney failure, unspecified; E44.0 Moderate protein-calorie malnutrition; M46.36 Infection of intervertebral disc (pyogenic), lumbar region; M46.26 Osteomyelitis of vertebra, lumbar region; F03.90 Unspecified dementia, unspecified severity, without behavioral disturbance, psychotic disturbance, mood disturbance, and anxiety; R65.20 Severe sepsis without septic shock; D63.1 Anemia in chronic kidney disease; M47.816 Spondylosis without myelopathy or radiculopathy, lumbar region; Z68.30 Body mass index [BMI] 30.0-30.9, adult; I35.0 Nonrheumatic aortic (valve) stenosis; I12.9 Hypertensive chronic kidney disease with stage 1 through stage 4 chronic kidney disease, or unspecified chronic kidney disease; N18.30 Chronic kidney disease, stage 3 unspecified; F32.A Depression, unspecified; F41.9 Anxiety disorder, unspecified; Z28.21 Immunization not carried out because of patient refusal; Z98.890 Other specified postprocedural states; Z90.49 Acquired absence of other specified parts of digestive tract; Z88.0 Allergy status to penicillin; Z79.899 Other long term (current) drug therapy; Z87.891 Personal history of nicotine dependence
CPT/HCPCS: 0241U; 20225; 36415; 36569; 51702; 70450; 70551; 71045; 72100; 72131; 72158; 77012; 80048; 80053; 80202; 81001; 81003; 82565; 82607; 82728; 82746; 83540; 83550; 84145; 84443; 85025; 85027; 85610; 85651; 85730; 86140; 87040; 87071; 87075; 87077; 87086; 87186; 87205; 88108; 88305; 88311; 93306; 94640; 94760; 96374; 96375; 97110; 97116; 97162; 97166; 97530; 97535; 99285-25; A9270; A9579; C1751; J0696; J1170; J1650; J1885; J2916; J3010; J3370; J7030; J7050